=== PATIENT | male | born 1975 | race Caucasian/White ===

== ENCOUNTER 2016-08-25 15:29 | Emergency (ER) | payer MEDICARE | END 2016-08-25 16:25 | disposition home or self-care (01) | LOC: ER 15:29 | DX: J02.0 Streptococcal pharyngitis (principal); F17.210 Nicotine dependence, cigarettes, uncomplicated | CPT/HCPCS: 87502; 87651; 96372; J0561 ==

== ENCOUNTER 2016-09-06 16:01 | Emergency (ER) | payer MEDICARE | END 2016-09-06 16:57 | disposition home or self-care (01) | LOC: ER 16:01 | DX: J02.0 Streptococcal pharyngitis (principal); I10 Essential (primary) hypertension; F17.210 Nicotine dependence, cigarettes, uncomplicated | CPT/HCPCS: 87502; 96372; J1885 ==